=== PATIENT | female | born 2000 | race Two or more races ===

== ENCOUNTER 2021-01-20 18:23 | Emergency (ER) | payer OTHER ==
[~2021-01-20] VITALS: Ht 160 cm; Wt 108.9 kg
[2021-01-20 18:40] VITALS: BP 138/72
== END 2021-01-20 19:49 | disposition left against medical advice (07) ==
LOC: EDBD 18:23 → ER 18:27 → EDBD 18:27 → ER 19:49
DX: O9A.212 Injury, poisoning and certain other consequences of external causes complicating pregnancy, second trimester (principal); M79.10 Myalgia, unspecified site; Z3A.20 20 weeks gestation of pregnancy; Z53.21 Procedure and treatment not carried out due to patient leaving prior to being seen by health care provider
CPT/HCPCS: 76805